=== PATIENT | male | born 1980 | race Caucasian/White ===

== ENCOUNTER 2020-10-12 16:13 | Emergency (ER) | payer OTHER ==
[~2020-10-12 16:13] MED LIST: ZOFRAN ODT 4 MG4 MG PO
[2020-10-12 17:17] LABS: HEMOGLOBIN 14.9 gm/dl (14.0-17.5); RED BLOOD COUNT 4.87 M/UL (4.20-5.50); WHITE BLOOD COUNT 7.9 K/UL (4.5-11.0)
[2020-10-12 17:30] LABS: BUN/CREATININE RATIO 16 (0-10)
[2020-10-12] MEDS ORDERED: PROTONIX40 MG PO (18:46)
== END 2020-10-12 19:10 | disposition home or self-care (01) ==
LOC: ER1 16:13
PROVIDERS: Preventive Medicine Occupational Medicine
DX: K62.5 Hemorrhage of anus and rectum (principal); R31.9 Hematuria, unspecified
CPT/HCPCS: 80053; 81001; 83690; 85025; 85652; 86140; 86850; 86900; 86901; 87086; 96374; 99283; C9113; J7030

== ENCOUNTER → 2020-11-07 | Day surgery (SDC) | payer OTHER ==
[~2020-11-07] MED LIST changes: +PROTONIX40 MG PO
== END | disposition home or self-care (01) ==
LOC: OR 08:10
PROVIDERS: Internal Medicine Gastroenterology
PROC: 0DBP8ZX Excision of Rectum, Via Natural or Artificial Opening Endoscopic, Diagnostic (ICD-10-PCS; principal; 2020-11-07 12:30)
DX: K60.2 Anal fissure, unspecified (principal); K64.3 Fourth degree hemorrhoids; K64.2 Third degree hemorrhoids; K62.1 Rectal polyp; F17.210 Nicotine dependence, cigarettes, uncomplicated; E66.3 Overweight; Z68.26 Body mass index [BMI] 26.0-26.9, adult
CPT/HCPCS: J2250; J2704; J7040

== ENCOUNTER 2022-02-01 07:19 | Inpatient (IN) | payer OTHER ==
[~2022-02-01] VITALS: Ht 170.2 cm; Wt 81.6 kg
[2022-02-01 08:20] LABS: RED BLOOD COUNT 5.85 M/UL (4.20-5.50); WHITE BLOOD COUNT 11.2 K/UL (4.5-11.0)
[2022-02-01 11:36] LABS: ADENOVIRUS F 40/41 Not Detected (Negative); ASTROVIRUS Not Detected (Negative); CRYPTOSPORIDIUM Not Detected (Negative); E.COLI 0157 Not Detected (Negative); ENTAMOEBA HISTOLYTICA Not Detected (Negative); ENTEROAGGREGATIVE E.COLI (EAEC Not Detected (Negative); ENTEROPATHOGENIC E.COLI (EPEC) Not Detected (Negative); ENTEROTOXIGENIC E.COLI (ETEC) Not Detected (Negative); GIARDIA LAMBLIA Not Detected (Negative); NOROVIRUS GI/GII Not Detected (Negative); PLESIOMONAS SHIGELLOIDES Not Detected (Negative); ROTOVIRUS A Not Detected (Negative); SALMONELLA Not Detected (Negative); SAPOVIRUS Not Detected (Negative); SHIG/ENTEROINVAS.ECOLI (EIEC) Not Detected (Negative); SHIGA-LIK TOX.PRO.E.COLI (STEC Not Detected (Negative); VIBRIO Not Detected (Negative); VIBRIO CHOLERAE Not Detected (Negative); YERSINIA ENTEROCOLITICA Not Detected (Negative)
[2022-02-01 14:59] LABS: CAMPYLOBACTER DETECTED (Negative); CLOSTRIDIUM DIFFICILE TOX A/B Not Detected (Negative)
[2022-02-02 08:02] LABS: HEMOGLOBIN 14.9 gm/dl (14.0-17.5); WHITE BLOOD COUNT 7.2 K/UL (4.5-11.0)
[2022-02-02 08:18] LABS: BUN/CREATININE RATIO 9 (0-10)
[2022-02-02] MEDS ORDERED: LEVOFLOXACIN750 MG PO (11:54)
== END 2022-02-02 12:42 | disposition home or self-care (01) | DRG 372 ==
LOC: ER1 07:19 → CDU 11:25 → MED SURG 4 18:01
PROVIDERS: Emergency Medicine; Physician Assistant; ADMIT Internal Medicine
DX: A04.5 Campylobacter enteritis (principal); N17.9 Acute kidney failure, unspecified; K62.5 Hemorrhage of anus and rectum; E87.1 Hypo-osmolality and hyponatremia; E86.0 Dehydration; F12.10 Cannabis abuse, uncomplicated; D75.1 Secondary polycythemia; K64.8 Other hemorrhoids; Z98.890 Other specified postprocedural states; Z82.49 Family history of ischemic heart disease and other diseases of the circulatory system; Z79.899 Other long term (current) drug therapy
CPT/HCPCS: 80048; 80053; 82270; 82272; 83605; 83690; 83735; 85025; 85610; 85730; 87040; 87507; 96374; 96375; 99285; J1956; J2405; J2543; Q9967